=== PATIENT | male | born 1950 ===

== ENCOUNTER → 2020-12-19 13:50 | Outpatient (CLI) | payer OTHER | END | disposition home or self-care (01) | LOC: LAB 13:50 | PROVIDERS: ATTEND Urology | DX: N36.0 Urethral fistula (principal); N30.00 Acute cystitis without hematuria ==

== ENCOUNTER → 2023-03-11 11:37 | Outpatient (CLI) | payer OTHER | END | disposition home or self-care (01) | LOC: LAB 11:37 | PROVIDERS: ATTEND Urology | DX: N30.00 Acute cystitis without hematuria (principal) ==

== ENCOUNTER 2023-03-26 05:45 | Day surgery (SDC) | payer OTHER ==
[~2023-03-26 05:45] MED LIST: ATENOLOL50 MG PO; LIPITOR40 MG PO; NEURONTIN300 MG PO; ZESTRIL40 M1 PO
== END 2023-03-26 14:50 | disposition home or self-care (01) ==
LOC: CIR.AMB 05:45
PROVIDERS: ATTEND Urology
DX: C67.9 Malignant neoplasm of bladder, unspecified (principal); Z20.822 Contact with and (suspected) exposure to COVID-19; I10 Essential (primary) hypertension

== ENCOUNTER → 2024-02-12 | Outpatient (CLI) | payer OTHER | END | disposition home or self-care (01) | LOC: MRI 11:15 | PROVIDERS: ATTEND Urology | DX: N28.1 Cyst of kidney, acquired (principal); C67.9 Malignant neoplasm of bladder, unspecified | CPT/HCPCS: 74183 ==